=== PATIENT | female | born 1985 | race Caucasian/White ===

== ENCOUNTER 2023-10-16 12:55 | Outpatient (REF) | payer BC, SELFPAY ==
[2023-10-16 14:14] LABS: ALT 30 U/L (14-59); AST 16 U/L (15-37); Alkaline Phosphatase 65 U/L (46-116); Anion Gap 11.2 mmol/L (3-11); BUN 9 mg/dL (7-18); Bilirubin, Total 0.4 mg/dL (0.2-1.0); CO2 25.8 mmol/L (21.0-32.0); CREATININE 0.7 mg/dL (0.55-1.02); Calcium 8.9 mg/dL (8.5-10.1); Calculated LDL 98 mg/dL (<100); Chloride 106 mmol/L (98-107); Cholesterol 170 mg/dL (<200); Estimated GFR 114.16 (mL/min/1.73m2); Glucose 93 mg/dL (74-106); HDL Cholesterol 59 mg/dL (40-60); Sodium 143 mmol/L (136-145); Triglyceride 68 mg/dL (<150)
[2023-10-16 14:28] LABS: Albumin 4.1 g/dL (3.4-5.0); Total Protein 7.2 g/dL (6.4-8.2)
== END 2023-10-16 12:56 | disposition home or self-care (01) ==
LOC: NCHCN 12:55
PROVIDERS: PCP Nurse Practitioner Family; Visit Provider Nurse Practitioner Family
DX: Z00.00 Encounter for general adult medical examination without abnormal findings (principal); E78.5 Hyperlipidemia, unspecified
CPT/HCPCS: 80053; 80061